=== PATIENT | female | born 1995 | race Caucasian/White ===

== ENCOUNTER → 2019-09-21 16:51 | Outpatient (BNVA) | payer MEDICAID, SELFPAY | PROVIDERS: Family Provider Social Worker Clinical; PCP Counselor Professional; Visit Provider Nurse Practitioner Family | DX: S69.91XA Unspecified injury of right wrist, hand and finger(s), initial encounter (principal); W19.XXXA Unspecified fall, initial encounter; M25.531 Pain in right wrist | CPT/HCPCS: 73110 ==

== ENCOUNTER → 2019-11-12 08:42 | Outpatient (BNVA) | payer MEDICAID, SELFPAY | PROVIDERS: Family Provider Social Worker Clinical; PCP Counselor Professional; Visit Provider Psychiatry & Neurology Psychiatry | DX: F43.12 Post-traumatic stress disorder, chronic (principal); F33.2 Major depressive disorder, recurrent severe without psychotic features; F81.9 Developmental disorder of scholastic skills, unspecified | CPT/HCPCS: 99204 ==

== ENCOUNTER → 2019-12-10 08:40 | Outpatient (BNVA) | payer MEDICAID, SELFPAY | PROVIDERS: Family Provider Social Worker Clinical; Visit Provider Psychiatry & Neurology Psychiatry | DX: F43.12 Post-traumatic stress disorder, chronic (principal); F81.9 Developmental disorder of scholastic skills, unspecified; F33.2 Major depressive disorder, recurrent severe without psychotic features; F33.1 Major depressive disorder, recurrent, moderate | CPT/HCPCS: 99213 ==

== ENCOUNTER → 2020-06-27 14:48 | Outpatient (BNVA) | payer MEDICAID, SELFPAY | PROVIDERS: Family Provider Social Worker Clinical; Visit Provider Nurse Practitioner Family | DX: S93.409A Sprain of unspecified ligament of unspecified ankle, initial encounter (principal); M25.571 Pain in right ankle and joints of right foot | CPT/HCPCS: 73610 ==

== ENCOUNTER → 2020-09-29 08:48 | Outpatient (BNVA) | payer MEDICAID, SELFPAY | PROVIDERS: Family Provider Social Worker Clinical; PCP Nurse Practitioner Family; Referring Provider Nurse Practitioner Family; Visit Provider Anesthesiology Pain Medicine | DX: G89.29 Other chronic pain (principal); M54.2 Cervicalgia | CPT/HCPCS: 99204 ==

== ENCOUNTER → 2020-11-22 09:53 | Outpatient (BNVA) | payer MEDICAID, SELFPAY | PROVIDERS: Family Provider Social Worker Clinical; PCP Nurse Practitioner Family; Visit Provider Nurse Practitioner Family | DX: S49.91XA Unspecified injury of right shoulder and upper arm, initial encounter (principal); X58.XXXA Exposure to other specified factors, initial encounter | CPT/HCPCS: 73030 ==

== ENCOUNTER 2020-12-08 06:00 | Outpatient (RCR) | payer MEDICAID, SELFPAY | END 2021-01-02 23:59 | disposition home or self-care (01) | LOC: MPT 06:00 | PROVIDERS: PCP Nurse Practitioner Family; Referring Provider Anesthesiology Pain Medicine; Visit Provider Anesthesiology Pain Medicine | DX: G89.29 Other chronic pain (principal); M54.2 Cervicalgia | CPT/HCPCS: 97161 ==

== ENCOUNTER → 2020-12-22 11:00 | Outpatient (BNVA) | payer MEDICAID, SELFPAY | PROVIDERS: PCP Nurse Practitioner Family; Visit Provider Anesthesiology Pain Medicine | DX: M54.9 Dorsalgia, unspecified (principal); M54.2 Cervicalgia | CPT/HCPCS: 99212 ==

== ENCOUNTER → 2021-04-11 08:49 | Outpatient (BNVA) | payer MEDICAID, SELFPAY | PROVIDERS: PCP Nurse Practitioner Family; Visit Provider Anesthesiology Pain Medicine | DX: M43.12 Spondylolisthesis, cervical region (principal); M25.511 Pain in right shoulder | CPT/HCPCS: 99213 ==

== ENCOUNTER → 2021-04-25 11:44 | Outpatient (BNVA) | payer MEDICAID, SELFPAY | PROVIDERS: PCP Nurse Practitioner Family; Visit Provider Registered Nurse | DX: Z02.89 Encounter for other administrative examinations (principal); Z03.89 Encounter for observation for other suspected diseases and conditions ruled out; Z79.899 Other long term (current) drug therapy | CPT/HCPCS: 36415; 80053; 80061; 82306; 82607; 82746; 83036; 83540; 84443; 85025 ==

== ENCOUNTER → 2021-08-22 14:39 | Outpatient (BNVA) | payer MEDICAID, SELFPAY | PROVIDERS: PCP Nurse Practitioner Family; Visit Provider Emergency Medicine | DX: M25.542 Pain in joints of left hand (principal); M25.532 Pain in left wrist | CPT/HCPCS: 73110; 73130 ==

== ENCOUNTER → 2021-10-02 11:44 | Outpatient (BNVA) | payer MEDICAID, SELFPAY | PROVIDERS: PCP Nurse Practitioner Family; Visit Provider Nurse Practitioner Family | DX: M89.8X1 Other specified disorders of bone, shoulder (principal) | CPT/HCPCS: 73000 ==

== ENCOUNTER → 2022-12-06 14:24 | Outpatient (BNVA) | payer MEDICAID, SELFPAY | PROVIDERS: PCP Nurse Practitioner Family; Visit Provider Emergency Medicine | DX: M25.561 Pain in right knee (principal) | CPT/HCPCS: 73562 ==

== ENCOUNTER → 2024-01-15 09:52 | Outpatient (BNVA) | payer MEDICAID, SELFPAY | PROVIDERS: PCP Nurse Practitioner Family; Referring Provider Family Medicine; Visit Provider Specialist | DX: G40.909 Epilepsy, unspecified, not intractable, without status epilepticus (principal); F81.9 Developmental disorder of scholastic skills, unspecified; G43.711 Chronic migraine without aura, intractable, with status migrainosus | CPT/HCPCS: 99204; 99205 ==

== ENCOUNTER → 2024-04-17 09:21 | Outpatient (BNVA) | payer MEDICAID, SELFPAY | PROVIDERS: PCP Nurse Practitioner Family; Visit Provider Specialist | DX: G40.909 Epilepsy, unspecified, not intractable, without status epilepticus (principal); F81.9 Developmental disorder of scholastic skills, unspecified; G43.711 Chronic migraine without aura, intractable, with status migrainosus | CPT/HCPCS: 99214; 99215 ==

== ENCOUNTER → 2024-05-26 07:56 | Outpatient (BNVA) | payer MEDICAID, SELFPAY | PROVIDERS: PCP Nurse Practitioner Family; Referring Provider Specialist; Visit Provider Specialist | DX: G40.109 Localization-related (focal) (partial) symptomatic epilepsy and epileptic syndromes with simple partial seizures, not intractable, without status epilepticus (principal) | CPT/HCPCS: 95819 ==

== ENCOUNTER → 2024-10-13 08:43 | Outpatient (BNVA) | payer MEDICAID, SELFPAY | PROVIDERS: PCP Nurse Practitioner Family; Visit Provider Specialist | DX: G40.909 Epilepsy, unspecified, not intractable, without status epilepticus (principal) | CPT/HCPCS: 99213 ==

== ENCOUNTER → 2024-11-23 17:12 | Outpatient (BNVA) | payer OTHER, SELFPAY | PROVIDERS: PCP Nurse Practitioner Family | DX: F33.2 Major depressive disorder, recurrent severe without psychotic features (principal); F43.12 Post-traumatic stress disorder, chronic; F81.9 Developmental disorder of scholastic skills, unspecified | CPT/HCPCS: 80053; 80061; 82306; 82607; 83036; 84443; 85025 ==